=== PATIENT | female | born 1950 | race Caucasian/White ===

== ENCOUNTER 2017-07-06 11:46 | Emergency (ER) | payer OTHER ==
[~2017-07-06] VITALS: Ht 167.6 cm; Wt 64.0 kg
[~2017-07-06 11:46] MED LIST: ASPI81TA82 PO
[2017-07-06 11:51] VITALS: BP 131/81; PULSE 98; RESP 20; TEMP 98.3; O2SAT 97
--- NOTE | 2017-07-06 12:32 | PD ---
HPI Chief Complaint: Back/ Neck Pain or Injury Time Seen by Provider: 12:07 Travel History International Travel<30 days: No Contact w/Intl Traveler<30days: No Traveled to known affect area: No History of Present Illness HPI Patient comes emergency department complaining of right-sided sciatica pain ongoing for 3 months. Patient reports she has had MRIs done, physical therapy, and is taking pain medication with minimal no relief of symptoms. Pain is worse with certain movement and walking. Patient describes pain as a sharp burning pain starts in her right hip radiates distally. Denies any fevers, trauma, loss change in bowel or bladder, numbness anywhere, back pain, abdominal pain, or history of IV drug use. Patient reports they contacted Dr. Baker's office prior to coming to emergency department and wanted him contacted once they arrived. [facility] Past Medical History Cancer: No Cardiovascular Problems: No Diabetes: No Endocrine: No Genitourinary: No Hepatitis: No Hiatal Hernia: No Immune Disorder: No Musculoskeletal: Yes (Sciatica) Neurologic: No Psychiatric: No Reproductive: No Respiratory: No Thyroid Disease: No ?: Not Past Surgical History AICD: No Ear Surgery: Yes (l ear ) Joint Replacement: No Pacemaker: No Social History Tobacco Use: No Substance Use: No Allergies-Medications (Allergen,Severity, Reaction): Coded Allergies: No Known Allergies (Unverified , 10/15/15) Reported Meds & Prescriptions Reported Meds & Active Scripts Active Medrol Dosepak (Methylprednisolone) 4 Mg Dspk 4 Mg PO DIRECTED Per Pharmacist direction Review of Systems Except as stated in HPI: all other systems reviewed are Neg Physical Exam Narrative GENERAL: Well-developed, well nourished, in no acute distress, and non-ill appearing. SKIN: Focused skin assessment warm and dry. HEAD: Atraumatic. Normocephalic. EYES: Pupils equal and round. EOMI. No scleral icterus. No injection or drainage. ENT: No nasal bleeding or discharge. Mucous membranes pink and moist. NECK: Trachea midline. Supple. No nuclear rigidity. CARDIOVASCULAR: Dorsal pulses 2+, intact, and equal bilaterally. RESPIRATORY: No accessory muscle use. No respiratory distress. GASTROINTESTINAL: Abdomen soft, non-tender, nondistended, and no guarding. Hepatic and splenic margins not palpable. No pulsatile mass. MUSCULOSKELETAL: No obvious deformities. No clubbing. No cyanosis. No edema. Full range of motion. No tenderness or crepitus over lumbar spine. Patient reports tenderness of right greater trochanter that radiates distally. Pain is worse with passive movement of right hip. Patient ambulating around ER with cane. Strength 5 out of 5 and equal bilaterally with dorsal and plantar flexion. Sensation intact over first webspace and equal in bilateral lower extremities. NEUROLOGICAL: Awake and alert. No obvious cranial nerve deficits. Motor grossly within normal limits. Normal speech. PSYCHIATRIC: Appropriate mood and affect; insight and judgment normal. Data Data Last Documented VS Vital Signs Date Time Temp Pulse Resp B/P (MAP) Pulse Ox O2 Delivery O2 Flow Rate FiO2 07/06/17 11:51 98.3 98 20 131/81 (98) 97 Orders Orders Dexamethasone Inj (Decadron Inj) (07/06/17 14:15) Ketorolac Inj (Toradol Inj) (07/06/17 14:15) Ed Discharge Order (07/06/17 14:11) [facility] Medical Decision Making Medical Screen Exam Complete: Yes Emergency Medical Condition: Yes Differential Diagnosis Sciatica, acute on chronic pain, arthritis Narrative Course The patient presented complaining of sciatica pain. There was no history of recent fall or trauma. There was no evidence to support genitourinary etiology. There is also no evidence to suggest vascular pathology such as AAA dissection. No fevers or other evidence to suspect infectious processes, abscess, osteomyelitis etc. The patients neurological exam is normal with normal motor and sensory. There is no saddle paresthesias reported and no bowel or bladder incontinence or retention. I suspect the pain is mechanical in nature with sciatica. Clinical suspicion, plan of care and management was discussed with the patient. The patient was instructed to follow up with their health care provider. The patient was also instructed to return if the pain worsened, changed, or developed weakness or bowel or bladder trouble. The patient agreed with plan. Patient in no obvious distress upon re-evaluation. Patient was seen and evaluated by neurosurgeon, who recommended pain management at this time. Patient was asked if they wanted to speak to my attending, which the patient did not wish to do at this time. Any questions/concerns in reference to patient diagnosis/condition discussed and clarified prior to patient's discharge. Reinforced sheer importance of close follow up with patient's primary physician or primary care clinic. Instructed patient to return to ED immediately, if symptoms return/worsen. Patient showed understanding of above instructions. Further instructions and recommendations were detailed in discharge paperwork. Patient ambulated without difficulty out of ED at discharge. Physician Communication Physician Communication [id number] Grimaldo, neurosurgeon on-call, who recommends contacting Dr. Baker who is in his office today. [id number] Baker's PA Cheryl Herrera, states they will come evaluate patient in the emergency department. [id number] Dr. Baker saw and evaluated patient in the emergency department and recommended giving 30 mg of Toradol IM and sending patient home with different pain medication. Diagnosis Primary Impression: Sciatica of right side Patient Instructions: General Instructions, Sciatica (ED) Additional Instructions: Follow-up with your primary care physician in 3-5 days for reevaluation. Take all medication as prescribed. Return to the emergency department if symptoms get worse. Med/Other Pt SpecificInfo: Prescription(s) given Scripts Methylprednisolone Dosepak (Medrol Dosepak) 4 Mg Dspk 4 MG PO DIRECTED, #1 DSPK 0 Refills Per Pharmacist direction Prov: Tamara Cook MD 07/06/17 Disposition: 01 DISCHARGE HOME Condition: Stable Zhou Stanton July 06, 2017 12:32
--- NOTE | 2017-07-06 13:56 | PD.CONS ---
[facility] Service neurosurgery Consult Requested By Shanice DUNLAP Reason for Consult Back pain Primary Care Physician Dorothy Wing MD History of Present Illness this is a 66 year old female who comes emergency department with severe right- sided sciatica pain ongoing for 3 months. Patient reports she has had MRIs done , physical therapy, and is taking pain medication with minimal no relief of symptoms. Pain is worse with certain movement and walking. Patient describes pain as a sharp burning pain starts in her right hip radiates distally. She denies any fevers, trauma, loss change in bowel or bladder, numbness anywhere, back pain, abdominal pain, or history of IV drug use. MRI has been done as outpatient. Neurosurgical consultation was requested Review of Systems Constitutional: DENIES: Diaphoretic episodes, Fatigue, Fever, Weight gain, Weight loss, Chills, Dizziness, Change in appetite, Night Sweats Endocrine: DENIES: Abnorml menstrual pattern, Heat/cold intolerance, Polydipsia , Polyuria, Polyphagia Eyes: DENIES: Blurred vision, Diplopia, Eye inflammation, Eye pain, Vision loss , Photosensitivity, Double Vision Ears, nose, mouth, throat: DENIES: Tinnitus, Hearing loss, Vertigo, Nasal discharge, Oral lesions, Throat pain, Hoarseness, Ear Pain, Running Nose, Epistaxis, Sinus Pain, Toothache, Odynophagia Respiratory: DENIES: Apneas, Cough, Snoring, Wheezing, Hemoptysis, Sputum production, Shortness of breath Cardiovascular: DENIES: Chest pain, Palpitations, Syncope, Dyspnea on Exertion , PND, Lower Extremity Edema, Orthopnea, Claudication Gastrointestinal: DENIES: Abdominal pain, Black stools, Bloody stools, Constipation, Diarrhea, Nausea, Vomiting, Difficulty Swallowing, Anorexia Genitourinary: DENIES: Abnormal vaginal bleeding, Dysmenorrhea, Dyspareunia, Sexual dysfunction, Urinary frequency, Urinary incontinence, Urgency, Hematuria , Dysuria, Nocturia, Vaginal discharge Musculoskeletal: COMPLAINS OF: Back pain, DENIES: Joint pain, Muscle aches, Stiffness, Joint Swelling, Neck pain Integumentary: DENIES: Abnormal pigmentation, Pruritus, Rash, Nail changes, Breast masses, Breast skin changes, Nipple discharge Hematologic/lymphatic: DENIES: Bruising, Lymphadenopathy Immunologic/allergic: DENIES: Eczema, Urticaria Neurologic: DENIES: Abnormal gait, Headache, Localized weakness, Paresthesias, Seizures, Speech Problems, Tremor, Poor Balance Psychiatric: DENIES: Anxiety, Confusion, Mood changes, Depression, Hallucinations, Agitation, Suicidal Ideation, Homicidal Ideation, Delusions Past Family Social History Allergies: Coded Allergies: No Known Allergies (Unverified , 10/15/15) Past Medical History Cancer: No Cardiovascular Problems: No Diabetes: No Endocrine: No Genitourinary: No Hepatitis: No Hiatal Hernia: No Immune Disorder: No Musculoskeletal: Yes (Sciatica) Neurologic: No Psychiatric: No Reproductive: No Respiratory: No Thyroid Disease: No ?: Not Past Surgical History AICD: No Ear Surgery: Yes (l ear ) Joint Replacement: No Pacemaker: No Reported Medications Medrol Dosepak (Methylprednisolone) 4 Mg Dspk 4 Mg PO DIRECTED Per Pharmacist direction Active Ordered Medications Current Medications Dexamethasone Sodium Phosphate (Decadron Inj) 10 mg ONCE ONCE IM ; Start at 14:15; Stop 07/06/17 at 14:15; Status DC Ketorolac Tromethamine (Toradol Inj) 30 mg ONCE ONCE IM Last administered on at 14:27; Start 07/06/17 at 14:15; Stop 07/06/17 at 14:16; Status DC Family History Her family history was reviewed and noncontributory to her condition Social History Tobacco Use: No Substance Use: No No illicit drug use Physical Exam Vital Signs Vital Signs Date Time Temp Pulse Resp B/P (MAP) Pulse Ox O2 Delivery O2 Flow Rate FiO2 07/06/17 11:51 98.3 98 20 131/81 (98) 97 Physical Exam GENERAL: Well-developed, well nourished, in no acute distress SKIN: Focused skin assessment warm and dry. HEAD: Atraumatic. Normocephalic. EYES: Pupils equal and round. EOMI. No scleral icterus. No injection or drainage. ENT: No nasal bleeding or discharge. Mucous membranes pink and moist. NECK: Trachea midline. Supple. No nuclear rigidity. CARDIOVASCULAR: Dorsal pulses 2+, intact, and equal bilaterally. RESPIRATORY: No accessory muscle use. No respiratory distress. GASTROINTESTINAL: Abdomen soft, non-tender, nondistended, and no guarding. Hepatic and splenic margins not palpable. No pulsatile mass. MUSCULOSKELETAL: No obvious deformities. No clubbing. No cyanosis. No edema. Full range of motion. No tenderness or crepitus over lumbar spine. Patient reports tenderness of right greater trochanter that radiates distally. Pain is worse with passive movement of right hip. Patient ambulating around ER with cane. Strength 5 out of 5 and equal bilaterally with dorsal and plantar flexion. Sensation intact over first webspace and equal in bilateral lower extremities. NEUROLOGICAL: Awake and alert. No obvious cranial nerve deficits. Motor grossly within normal limits. Normal speech. PSYCHIATRIC: Appropriate mood and affect; insight and judgment normal. Attending Statement The patient presented complaining of sciatica pain. There was no history of recent fall or trauma. There was no evidence to support genitourinary etiology. There is also no evidence to suggest vascular pathology such as AAA dissection. No fevers or other evidence to suspect infectious processes, abscess, osteomyelitis. Her neurological exam is normal with normal motor and sensory. There is no saddle paresthesias reported and no bowel or bladder incontinence or retention. I reviewed her outpatient MRI of the lumbar spine. I discussed with her and her the alternatives of treatment including, conservative management, pain management by an interventional furniture painter, or a surgical decompression, which should always be a last resort. She has already been referred to pain management, followed by conservative treatment with physical therapy and exercises for functional oriental orthodox of her lumbar spine. I explained to Ms. Campos the importance of avoiding heavy lifting, repetitive bending or other activities which would result in increased stress on the lumbar spine. She understands. All her questions have been answered and she is in agreement with the plan. She leaves the office in stable condition. Jurgen Baker MD July 06, 2017 13:56
[2017-07-06] MEDS ORDERED: MEDR4PAK PO (14:12)
[2017-07-06] MEDS ORDERED: KETOROLAC TROMETHAMINE 60 MG/2 ML (IM) VIAL IM ONE (14:15)
[2017-07-06] MEDS ORDERED: DEXAMETHASONE SOD PHOS 20 MG/5 ML VIAL IM ONE (14:15)
== END 2017-07-06 14:32 | disposition home or self-care (01) ==
LOC: NEPK 11:46
DX: M54.31 Sciatica, right side (principal); Z87.39 Personal history of other diseases of the musculoskeletal system and connective tissue
CPT/HCPCS: 96372; 99283; J1885